=== PATIENT | male | born 1990 | race Caucasian/White ===

== ENCOUNTER 2019-05-01 10:15 | Emergency (ER) | payer BC ==
[~2019-05-01] VITALS: Ht 177.8 cm; Wt 81.7 kg
[~2019-05-01 10:15] MED LIST: HYDROCODONE-APA1 TA1 PO; NORCO 5-325 TA1 EAC1 PO; PENICILLIN VK250 MG PO; PENICILLIN VK500 MG PO; PROPRANOLOL 1010 MG PO; SEROQUEL 25 MG25 M1 PO; XANAX2 MG
[2019-05-01] MEDS ORDERED: ADDERALL 10 MG10 MG PO (10:23)
[2019-05-01] MEDS ORDERED: BACTRIM DS TAB1 EAC1 PO (10:39)
[2019-05-01] MEDS ORDERED: TYLENOL WITH CO1 TA1 PO (10:39)
[2019-05-01] MEDS ORDERED: KEFLEX500 M1 PO (10:39)
[2019-05-01 10:43] VITALS: BP 155/82
== END 2019-05-01 10:43 | disposition home or self-care (01) ==
LOC: M.ERS 10:15
DX: L02.211 Cutaneous abscess of abdominal wall (principal); F41.9 Anxiety disorder, unspecified; F31.9 Bipolar disorder, unspecified

== ENCOUNTER 2019-05-30 13:59 | Emergency (ER) | payer BC ==
[~2019-05-30] VITALS: Ht 175.3 cm; Wt 81.7 kg
[~2019-05-30 13:59] MED LIST changes: +ADDERALL 10 MG10 MG PO; +BACTRIM DS TAB1 EAC1 PO; +KEFLEX500 M1 PO; +TYLENOL WITH CO1 TA1 PO
[2019-05-30] MEDS ORDERED: TYLENOL WITH CO1 TA1 PO (14:40)
[2019-05-30] MEDS ORDERED: AMOXICILLIN 50500 M1 PO (14:40)
[2019-05-30 15:04] VITALS: BP 123/82
== END 2019-05-30 15:05 | disposition home or self-care (01) ==
LOC: M.ERS 13:59
DX: K04.7 Periapical abscess without sinus (principal); K02.9 Dental caries, unspecified; F41.9 Anxiety disorder, unspecified; F31.9 Bipolar disorder, unspecified